=== PATIENT | female | born 1965 | race African-American/Black ===

== ENCOUNTER 2016-12-08 12:17 | Emergency (ER) | payer OTHER ==
[~2016-12-08] VITALS: Ht 170.2 cm; Wt 88.4 kg
[~2016-12-08 12:17] MED LIST: AMLODIPINE BESY10 MG PO; AMLODIPINE BESYL5 MG PO; APIDRA SOL100 UNIT/1 SC; APRESOLINE50 MG PO; ASPIRIN EC325 MG PO; ATORVASTATIN CA40 MG PO; CARBAMAZEPINE200 MG PO; CARVEDILOL25 MG PO; ELAVIL25 MG PO; HYDRALAZINE HC100 MG PO; HYDROCHLOROTHIA25 MG PO; ISOSORBIDE MONO30 MG PO; LANTUS 3 M100 UNITS1 SC; LEVEMIR FL100 UNIT/1 SC; LISINOPRIL40 MG PO; NAPROSYN500 MG PO; NEURONTIN800 MG PO; NORVASC5 MG PO; NOVOLOG PE100 UNITS/ SC; TYLENOL EXTRA500 MG PO; ULTRAM50 MG PO
[2016-12-08 13:26] VITALS: BP 162/82
== END 2016-12-08 13:32 | disposition home or self-care (01) ==
LOC: EME 12:17
DX: S29.012A Strain of muscle and tendon of back wall of thorax, initial encounter (principal); V49.00XA Driver injured in collision with unspecified motor vehicles in nontraffic accident, initial encounter; Y92.488 Other paved roadways as the place of occurrence of the external cause; Z86.73 Personal history of transient ischemic attack (TIA), and cerebral infarction without residual deficits
CPT/HCPCS: 99281; 99284

== ENCOUNTER 2016-12-29 11:24 | Emergency (ER) | payer OTHER ==
[~2016-12-29] VITALS: Ht 170.2 cm; Wt 87.4 kg
[2016-12-29] MEDS ORDERED: LIDODERM 5% P1 PATCH TD (13:17)
[2016-12-29] MEDS ORDERED: FLEXERIL10 MG PO (13:17)
[2016-12-29] MEDS ORDERED: NAPROSYN500 MG PO (13:17)
[2016-12-29 13:32] VITALS: BP 95/59
== END 2016-12-29 13:34 | disposition home or self-care (01) ==
LOC: EME 11:24
DX: S29.012D Strain of muscle and tendon of back wall of thorax, subsequent encounter (principal); V49.60XD Unspecified car occupant injured in collision with unspecified motor vehicles in traffic accident, subsequent encounter; M62.830 Muscle spasm of back; M54.5 Low back pain
CPT/HCPCS: 99281; 99283; J1885

== ENCOUNTER 2017-06-21 12:32 | Inpatient (IN) | payer OTHER ==
[2017-06-21] VITALS (10 sets, daily range): BP systolic 116–147; BP diastolic 59–81
[~2017-06-21] VITALS: Ht 167.6 cm; Wt 80.0 kg
[~2017-06-21 12:32] MED LIST changes: +FLEXERIL10 MG PO; +LIDODERM 5% P1 PATCH TD
[2017-06-21 13:44] LABS: CHLORIDE 104 mEq/L (99-109); POTASSIUM 4.1 mEq/L (3.7-5.4); SODIUM 135 mEq/L (136-147)
[2017-06-21 13:45] LABS: GLUCOSE 249 mg/dL (70-99)
[2017-06-21 13:49] LABS: CREATININE 1.3 mg/dL (0.6-1.3); GFR ESTIMATE (CALCULATED) 56 mL/min/
[2017-06-21 13:50] LABS: UREA NITROGEN (BUN) 19 mg/dL (9-23)
[2017-06-21 13:51] LABS: HEMATOCRIT 25.5 % (36.0-46.0); HEMOGLOBIN 7.8 G/DL (11.9-15.5); MCH 20.8 PG (29.0-34.0); MCHC 30.6 G/DL (30.0-36.0); PLATELET COUNT 367 K/uL (156-360); RBC DIS.WIDTH-CV 17.1 % (11.8-14.6); RBC DIS.WIDTH-SD 41.7 % (39-53); RED BLOOD COUNT 3.75 M/uL (3.80-5.20); WHITE BLOOD COUNT 6.2 K/uL (4.1-10.2)
[2017-06-21 14:06] LABS: TROP-I INTERPRETATION NEGATIVE; TROPONIN-I 0.01 ng/mL (0.0-0.30)
[2017-06-21] MEDS ORDERED: NAPROXEN500 MG PO (15:21)
[2017-06-21] MEDS ORDERED: ZOFRAN4 MG PO (15:22)
[2017-06-21] MEDS ORDERED: CYMBALTA30 MG PO (15:22)
[2017-06-21] MEDS ORDERED: TESSALON PERLE100 MG PO (15:22)
[2017-06-21] MEDS ORDERED: APRESOLINE100 MG PO (15:22)
[2017-06-21] MEDS ORDERED: HYDROCHLOROTHIA25 MG PO (15:23)
[2017-06-21] MEDS ORDERED: COREG25 M1 PO (15:23)
[2017-06-21] MEDS ORDERED: LIPITOR40 MG PO (15:23)
[2017-06-21] MEDS ORDERED: ISOSORBIDE DINIT5 MG PO (15:24)
[2017-06-21] MEDS ORDERED: LEVEMIR100 UNIT/2 SC (15:24)
[2017-06-21] MEDS ORDERED: NOVOLOG PE100 UNITS/ SC (15:25)
[2017-06-21 16:38] LABS: APPEARANCE CLOUDY ((CLEAR)); BILIRUBIN NEGATIVE; BLOOD NEGATIVE; COLOR YELLOW ((YELLOW)); GLUCOSE (STRIP) 50; KETONES NEGATIVE; LEUKOCYTES LARGE; NITRITE NEGATIVE; PROTEIN (STRIP) NEGATIVE; UROBILINOGEN 0.2 MG/DL (0.2-1.0)
[2017-06-21 17:08] LABS: RED BLOOD CELLS NONE SEEN /HPF (0-5)
[2017-06-21 17:09] LABS: BACTERIA 3+ /HPF; EPITHELIAL CELLS 3+ /HPF; MUCUS NONE SEEN /LPF; UCUL ADDED? YES; WHITE BLOOD CELLS 20-30 /HPF (0-5)
[2017-06-22 03:50] VITALS: BP 132/70
[2017-06-22 07:49] LABS: INTER. NORMALIZED RATIO 1.1
[2017-06-22 07:52] LABS: PTT 25.7 SEC (25-37)
[2017-06-22 07:57] LABS: HEMATOCRIT 31.1 % (36.0-46.0); HEMOGLOBIN 9.8 G/DL (11.9-15.5); MCV 71.3 FL (83-99)
[2017-06-22 08:00] VITALS: BP 134/71
[2017-06-22 08:11] LABS: ALBUMIN 3.2 G/DL (3.2-4.8); ALKALINE PHOSPHATASE 159 IU/L (3-129); ALT (GPT) 15 IU/L (3-49); AST (GOT) 13 IU/L (2-34); CHLORIDE 99 MEQ/L (99-109); CREATININE 0.9 MG/DL (0.6-1.3); GFR ESTIMATE (CALCULATED) > 59 mL/min/; GLUCOSE 184 mg/dL (70-99); POTASSIUM 3.9 MEQ/L (3.7-5.4); SODIUM 135 MEQ/L (136-147); TOTAL BILIRUBIN 0.3 MG/DL (0.0-1.0); TOTAL PROTEIN 6.3 G/DL (6.4-8.3); UREA NITROGEN (BUN) 15 mg/dL (9-23)
[2017-06-22 08:39] LABS: IMM.RETIC FRACTION 26.9 % (3-19); RETIC HGB EQUIVALENT 19.4 (28-36); RETICULOCYTE COUNT 1.3 % (0.5-1.8)
[2017-06-22 09:13] LABS: FERRITIN 10 NG/ML (10-291)
[2017-06-22 09:46] LABS: IRON 18 MCG/DL (35-150); TRANSFERRIN (TIBC) 229.5 mg/dL (215-380); TRANSFERRIN SATUR. 8 % (20-55)
[2017-06-22 10:07] LABS: FOLIC ACID (FOLATE) 17.2 NG/ML (5.0-22.0)
[2017-06-22 13:20] VITALS: BP 132/70
[2017-06-22 15:37] VITALS: BP 104/53
[2017-06-22 18:34] LABS: HEMATOCRIT 29.8 % (36.0-46.0); HEMOGLOBIN 9.4 G/DL (11.9-15.5); MCH 22.3 PG (29.0-34.0); MCHC 31.5 G/DL (30.0-36.0); MCV 70.8 FL (83-99); RBC DIS.WIDTH-SD 45.4 % (39-53); RED BLOOD COUNT 4.21 M/uL (3.80-5.20); WHITE BLOOD COUNT 7.5 K/uL (4.1-10.2)
[2017-06-22 18:51] LABS: PLAT.SUFFICIENCY ADEQUATE; PLATELET COUNT 374 K/uL (156-360)
[2017-06-22 20:29] LABS: HEMATOCRIT 30.4 % (36.0-46.0); HEMOGLOBIN 9.5 G/DL (11.9-15.5); MCV 70.9 FL (83-99)
[2017-06-22 20:47] VITALS: BP 139/76
[2017-06-22 23:53] VITALS: BP 147/72
[2017-06-23 03:36] VITALS: BP 136/74
[2017-06-23 07:12] LABS: BASOPHIL (%) 0.3 % (0-1); EOSINOPHIL (%) 3.5 % (0-5); EOSINOPHIL COUNT 0.2 K/uL (0-0.3); HEMATOCRIT 31.7 % (36.0-46.0); HEMOGLOBIN 9.8 G/DL (11.9-15.5); IMMATURE GRANULOCYTE (%) 0.2 % (0.0-0.7); LYMPHOCYTE (%) 37.5 % (15-42); LYMPHOCYTE COUNT 2.3 K/uL (1.0-2.8); MCHC 30.9 G/DL (30.0-36.0); MCV 71.1 FL (83-99); MONOCYTE (%) 9.8 % (3-12); MONOCYTE COUNT 0.6 K/uL (0-0.8); NEUTROPHIL (%) 48.7 % (45-76); PLATELET COUNT 390 K/uL (156-360); RBC DIS.WIDTH-CV 18.5 % (11.8-14.6); RBC DIS.WIDTH-SD 47.2 % (39-53); RED BLOOD COUNT 4.46 M/uL (3.80-5.20); WHITE BLOOD COUNT 6.2 K/uL (4.1-10.2)
[2017-06-23 07:25] LABS: ALBUMIN 3.2 G/DL (3.2-4.8); CHLORIDE 101 MEQ/L (99-109); CREATININE 0.9 MG/DL (0.6-1.3); GFR ESTIMATE (CALCULATED) > 59 mL/min/; GLUCOSE 160 mg/dL (70-99); PHOSPHORUS 3.8 mg/dL (2.5-4.9); SODIUM 137 MEQ/L (136-147); UREA NITROGEN (BUN) 13 mg/dL (9-23)
[2017-06-23 08:30] VITALS: BP 128/92
[2017-06-23 15:48] VITALS: BP 147/75
[2017-06-23 23:15] VITALS: BP 160/74
[2017-06-24 07:05] VITALS: BP 180/96
[2017-06-24 08:49] LABS: ALBUMIN 3.2 G/DL (3.2-4.8); ALKALINE PHOSPHATASE 144 IU/L (3-129); ALT (GPT) 11 IU/L (3-49); AST (GOT) 8 IU/L (2-34); CHLORIDE 102 MEQ/L (99-109); CREATININE 0.8 MG/DL (0.6-1.3); GFR ESTIMATE (CALCULATED) > 59 mL/min/; POTASSIUM 3.9 MEQ/L (3.7-5.4); SODIUM 140 MEQ/L (136-147); TOTAL BILIRUBIN 0.3 MG/DL (0.0-1.0); TOTAL PROTEIN 6.3 G/DL (6.4-8.3); UREA NITROGEN (BUN) 11 mg/dL (9-23)
[2017-06-24 09:11] LABS: GLUCOSE 107 mg/dL (70-99)
[2017-06-24 09:19] LABS: CARCINOEMBR.ANTIGEN 0.6 NG/ML
[2017-06-24 09:40] LABS: BASOPHIL (%) 0.7 % (0-1); EOSINOPHIL (%) 3.5 % (0-5); EOSINOPHIL COUNT 0.2 K/uL (0-0.3); HEMATOCRIT 33.5 % (36.0-46.0); HEMOGLOBIN 10.3 G/DL (11.9-15.5); IMMATURE GRANULOCYTE (%) 0.5 % (0.0-0.7); LYMPHOCYTE (%) 38.4 % (15-42); LYMPHOCYTE COUNT 2.3 K/uL (1.0-2.8); MCH 22.2 PG (29.0-34.0); MCHC 30.7 G/DL (30.0-36.0); MONOCYTE (%) 8.2 % (3-12); MONOCYTE COUNT 0.5 K/uL (0-0.8); NEUTROPHIL (%) 48.7 % (45-76); NEUTROPHIL COUNT 2.9 K/uL (1.8-6.4); PLATELET COUNT 419 K/uL (156-360); RBC DIS.WIDTH-CV 19.1 % (11.8-14.6); RED BLOOD COUNT 4.65 M/uL (3.80-5.20)
[2017-06-24 23:22] VITALS: BP 140/70
[2017-06-25 07:16] VITALS: BP 193/91
[2017-06-25 08:23] LABS: BASOPHIL (%) 0.5 % (0-1); EOSINOPHIL (%) 2.2 % (0-5); EOSINOPHIL COUNT 0.1 K/uL (0-0.3); HEMOGLOBIN 10.1 G/DL (11.9-15.5); IMMATURE GRANULOCYTE (%) 0.4 % (0.0-0.7); LYMPHOCYTE (%) 39.7 % (15-42); LYMPHOCYTE COUNT 2.2 K/uL (1.0-2.8); MCH 22.2 PG (29.0-34.0); MCHC 30.6 G/DL (30.0-36.0); MCV 72.7 FL (83-99); MONOCYTE (%) 7.1 % (3-12); MONOCYTE COUNT 0.4 K/uL (0-0.8); NEUTROPHIL (%) 50.1 % (45-76); NEUTROPHIL COUNT 2.8 K/uL (1.8-6.4); PLATELET COUNT 413 K/uL (156-360); RBC DIS.WIDTH-CV 18.8 % (11.8-14.6); RBC DIS.WIDTH-SD 48.8 % (39-53); RED BLOOD COUNT 4.54 M/uL (3.80-5.20); WHITE BLOOD COUNT 5.5 K/uL (4.1-10.2)
[2017-06-25 08:41] LABS: CHLORIDE 101 MEQ/L (99-109); CREATININE 0.8 MG/DL (0.6-1.3); GFR ESTIMATE (CALCULATED) > 59 mL/min/; GLUCOSE 91 mg/dL (70-99); SODIUM 139 MEQ/L (136-147); UREA NITROGEN (BUN) 9 mg/dL (9-23)
[2017-06-25 15:24] VITALS: BP 191/90
[2017-06-25 18:21] VITALS: BP 140/70
[2017-06-26] VITALS (7 sets, daily range): BP systolic 127–180; BP diastolic 70–86
[2017-06-26 06:33] LABS: HEMATOCRIT 31.4 % (36.0-46.0); HEMOGLOBIN 9.7 G/DL (11.9-15.5); MCH 22.2 PG (29.0-34.0); MCHC 30.9 G/DL (30.0-36.0); PLATELET COUNT 400 K/uL (156-360); RBC DIS.WIDTH-CV 18.7 % (11.8-14.6); RED BLOOD COUNT 4.36 M/uL (3.80-5.20); WHITE BLOOD COUNT 5.4 K/uL (4.1-10.2)
[2017-06-26 06:50] LABS: CHLORIDE 102 MEQ/L (99-109); CREATININE 0.8 MG/DL (0.6-1.3); GFR ESTIMATE (CALCULATED) > 59 mL/min/; GLUCOSE 98 mg/dL (70-99); POTASSIUM 3.4 MEQ/L (3.7-5.4); SODIUM 139 MEQ/L (136-147); UREA NITROGEN (BUN) 7 mg/dL (9-23)
[2017-06-27] VITALS (13 sets, daily range): BP systolic 129–190; BP diastolic 59–88
[2017-06-27 06:26] LABS: CHLORIDE 105 MEQ/L (99-109); GLUCOSE 113 mg/dL (70-99); SODIUM 140 MEQ/L (136-147); UREA NITROGEN (BUN) 15 mg/dL (9-23)
[2017-06-27 06:31] LABS: CREATININE 1.4 MG/DL (0.6-1.3); GFR ESTIMATE (CALCULATED) 51 mL/min/; POTASSIUM 4.3 MEQ/L (3.7-5.4)
[2017-06-27 07:23] LABS: HEMATOCRIT 21.9 % (36.0-46.0); HEMOGLOBIN 6.6 G/DL (11.9-15.5); MCH 22.1 PG (29.0-34.0); MCHC 30.1 G/DL (30.0-36.0); MCV 73.2 FL (83-99); PLATELET COUNT 332 K/uL (156-360); RBC DIS.WIDTH-CV 18.3 % (11.8-14.6); RBC DIS.WIDTH-SD 48.9 % (39-53); RED BLOOD COUNT 2.99 M/uL (3.80-5.20); WHITE BLOOD COUNT 7.8 K/uL (4.1-10.2)
[2017-06-27 16:22] LABS: BACTERIA NONE SEEN /HPF; EPITHELIAL CELLS RARE /HPF; HYALINE CASTS 30-40 /LPF; MUCUS 2+ /LPF; RED BLOOD CELLS 0-5 /HPF (0-5); WHITE BLOOD CELLS 0-5 /HPF (0-5)
[2017-06-27 17:29] LABS: CHLORIDE 101 MEQ/L (99-109); GFR ESTIMATE (CALCULATED) > 59 mL/min/; POTASSIUM 4.1 MEQ/L (3.7-5.4); SODIUM 135 MEQ/L (136-147); UREA NITROGEN (BUN) 16 mg/dL (9-23)
[2017-06-27 17:31] LABS: GLUCOSE 334 mg/dL (70-99)
[2017-06-27 17:40] LABS: HEMATOCRIT 26.8 % (36.0-46.0); HEMOGLOBIN 8.4 G/DL (11.9-15.5); MCH 24.2 PG (29.0-34.0); MCHC 31.3 G/DL (30.0-36.0); PLATELET COUNT 261 K/uL (156-360); RBC DIS.WIDTH-CV 18.9 % (11.8-14.6); RBC DIS.WIDTH-SD 52.8 % (39-53); RED BLOOD COUNT 3.47 M/uL (3.80-5.20); WHITE BLOOD COUNT 6.9 K/uL (4.1-10.2)
[2017-06-27 17:46] LABS: MCV 77.2 FL (83-99)
[2017-06-27 18:44] LABS: EOSINOPHILS,URINE NONE SEEN
[2017-06-28] VITALS (8 sets, daily range): BP systolic 120–200; BP diastolic 73–98
[2017-06-28 07:10] LABS: BASOPHIL (%) 0.3 % (0-1); EOSINOPHIL (%) 1.8 % (0-5); EOSINOPHIL COUNT 0.1 K/uL (0-0.3); HEMATOCRIT 29.3 % (36.0-46.0); HEMOGLOBIN 9.3 G/DL (11.9-15.5); IMMATURE GRANULOCYTE (%) 1.4 % (0.0-0.7); LYMPHOCYTE (%) 28.6 % (15-42); LYMPHOCYTE COUNT 1.9 K/uL (1.0-2.8); MCH 23.9 PG (29.0-34.0); MCHC 31.7 G/DL (30.0-36.0); MCV 75.3 FL (83-99); MONOCYTE (%) 7.7 % (3-12); MONOCYTE COUNT 0.5 K/uL (0-0.8); NEUTROPHIL (%) 60.2 % (45-76); PLATELET COUNT 286 K/uL (156-360); RBC DIS.WIDTH-CV 18.7 % (11.8-14.6); RBC DIS.WIDTH-SD 51.4 % (39-53); RED BLOOD COUNT 3.89 M/uL (3.80-5.20); WHITE BLOOD COUNT 6.7 K/uL (4.1-10.2)
[2017-06-28 08:02] LABS: CHLORIDE 99 MEQ/L (99-109); CREATININE 0.8 MG/DL (0.6-1.3); FERRITIN 23 NG/ML (10-291); GFR ESTIMATE (CALCULATED) > 59 mL/min/; GLUCOSE 169 mg/dL (70-99); IRON 73 MCG/DL (35-150); POTASSIUM 4.2 MEQ/L (3.7-5.4); SODIUM 136 MEQ/L (136-147); TRANSFERRIN (TIBC) 204.2 mg/dL (215-380); TRANSFERRIN SATUR. 36 % (20-55); UREA NITROGEN (BUN) 10 mg/dL (9-23)
[2017-06-28 10:14] LABS: HEMOGLOBIN A1c (GLYCOHEMOGLOB) 8.1 % (Below 5.7)
[2017-06-29 00:10] VITALS: BP 196/88
[2017-06-29 03:15] VITALS: BP 190/80
[2017-06-29 06:50] VITALS: BP 196/86
[2017-06-29 07:44] LABS: BASOPHIL (%) 0.1 % (0-1); EOSINOPHIL (%) 2.4 % (0-5); EOSINOPHIL COUNT 0.2 K/uL (0-0.3); HEMOGLOBIN 8.6 G/DL (11.9-15.5); IMMATURE GRANULOCYTE (%) 0.6 % (0.0-0.7); LYMPHOCYTE (%) 28.7 % (15-42); LYMPHOCYTE COUNT 1.9 K/uL (1.0-2.8); MCHC 31.9 G/DL (30.0-36.0); MCV 75.4 FL (83-99); MONOCYTE (%) 8.4 % (3-12); MONOCYTE COUNT 0.6 K/uL (0-0.8); NEUTROPHIL (%) 59.8 % (45-76); PLATELET COUNT 279 K/uL (156-360); RBC DIS.WIDTH-CV 18.8 % (11.8-14.6); RBC DIS.WIDTH-SD 52.3 % (39-53); RED BLOOD COUNT 3.58 M/uL (3.80-5.20); WHITE BLOOD COUNT 6.7 K/uL (4.1-10.2)
[2017-06-29 08:11] LABS: CHLORIDE 100 MEQ/L (99-109); CREATININE 0.7 MG/DL (0.6-1.3); GFR ESTIMATE (CALCULATED) > 59 mL/min/; GLUCOSE 198 mg/dL (70-99); SODIUM 138 MEQ/L (136-147); UREA NITROGEN (BUN) 7 mg/dL (9-23)
[2017-06-29 11:42] VITALS: BP 139/69
[2017-06-29 17:38] VITALS: BP 189/88
[2017-06-29 22:26] VITALS: BP 183/85
[2017-06-30] VITALS (8 sets, daily range): BP systolic 100–187; BP diastolic 57–88
[2017-06-30 06:01] LABS: BASOPHIL (%) 0.5 % (0-1); EOSINOPHIL (%) 3.5 % (0-5); EOSINOPHIL COUNT 0.2 K/uL (0-0.3); HEMATOCRIT 26.9 % (36.0-46.0); HEMOGLOBIN 8.6 G/DL (11.9-15.5); IMMATURE GRANULOCYTE (%) 0.3 % (0.0-0.7); LYMPHOCYTE (%) 30.8 % (15-42); LYMPHOCYTE COUNT 1.9 K/uL (1.0-2.8); MCH 24.1 PG (29.0-34.0); MCV 75.4 FL (83-99); MONOCYTE (%) 9.7 % (3-12); MONOCYTE COUNT 0.6 K/uL (0-0.8); NEUTROPHIL (%) 55.2 % (45-76); NEUTROPHIL COUNT 3.3 K/uL (1.8-6.4); PLATELET COUNT 282 K/uL (156-360); RBC DIS.WIDTH-CV 19.9 % (11.8-14.6); RBC DIS.WIDTH-SD 54.1 % (39-53); RED BLOOD COUNT 3.57 M/uL (3.80-5.20)
[2017-06-30 06:33] LABS: CHLORIDE 102 MEQ/L (99-109); CREATININE 0.8 MG/DL (0.6-1.3); GFR ESTIMATE (CALCULATED) > 59 mL/min/; GLUCOSE 166 mg/dL (70-99); MAGNESIUM 1.7 mg/dl (1.3-2.7); POTASSIUM 4.1 MEQ/L (3.7-5.4); SODIUM 139 MEQ/L (136-147); UREA NITROGEN (BUN) 9 mg/dL (9-23)
[2017-06-30 11:03] LABS: HEMATOCRIT 26.8 % (36.0-46.0); HEMOGLOBIN 8.8 G/DL (11.9-15.5); MCV 75.3 FL (83-99)
[2017-06-30 11:51] LABS: STOOL OCCULT BLD 1ST SPECIMEN POSITIVE
[2017-07-01 03:15] VITALS: BP 176/84
[2017-07-01 03:27] VITALS: BP 184/78
[2017-07-01 04:45] VITALS: BP 138/78
[2017-07-01 06:17] LABS: HEMATOCRIT 26.1 % (36.0-46.0); HEMOGLOBIN 8.3 G/DL (11.9-15.5); MCH 23.9 PG (29.0-34.0); MCHC 31.8 G/DL (30.0-36.0); MCV 75.2 FL (83-99); PLATELET COUNT 271 K/uL (156-360); RBC DIS.WIDTH-CV 20.5 % (11.8-14.6); RBC DIS.WIDTH-SD 55.1 % (39-53); RED BLOOD COUNT 3.47 M/uL (3.80-5.20); WHITE BLOOD COUNT 6.9 K/uL (4.1-10.2)
[2017-07-01 06:26] LABS: BASOPHIL (%) 0.3 % (0-1); EOSINOPHIL (%) 4.2 % (0-5); EOSINOPHIL COUNT 0.3 K/uL (0-0.3); IMMATURE GRANULOCYTE (%) 0.4 % (0.0-0.7); LYMPHOCYTE (%) 30.1 % (15-42); LYMPHOCYTE COUNT 2.1 K/uL (1.0-2.8); MONOCYTE (%) 8.3 % (3-12); MONOCYTE COUNT 0.6 K/uL (0-0.8); NEUTROPHIL (%) 56.7 % (45-76); NEUTROPHIL COUNT 3.9 K/uL (1.8-6.4)
[2017-07-01 06:41] LABS: CHLORIDE 101 MEQ/L (99-109); CREATININE 0.9 MG/DL (0.6-1.3); GFR ESTIMATE (CALCULATED) > 59 mL/min/; GLUCOSE 165 mg/dL (70-99); SODIUM 138 MEQ/L (136-147); UREA NITROGEN (BUN) 13 mg/dL (9-23)
[2017-07-01] MEDS ORDERED: NORCO 5/3251 TABLET PO (08:32)
[2017-07-01] MEDS ORDERED: COLACE100 MG PO (08:32)
[2017-07-01 09:20] VITALS: BP 142/84
[2017-07-01 10:04] VITALS: BP 180/100
== END 2017-07-01 13:17 | disposition home or self-care (01) | DRG 329 ==
LOC: EME 12:32 → ENRESERV 15:18 → 2EAST 15:43 → EDOF 15:43 → ENRESERV 15:48 → 2EAST 18:18 → ENPENDDIS 07-01 → 2EAST 07-01 13:17
PROVIDERS: Emergency Medicine; Family Medicine; Internal Medicine; Internal Medicine Gastroenterology; Physician Assistant; Surgery
DX: C18.0 Malignant neoplasm of cecum (principal); N17.0 Acute kidney failure with tubular necrosis; E86.0 Dehydration; I95.9 Hypotension, unspecified; I11.0 Hypertensive heart disease with heart failure; I50.32 Chronic diastolic (congestive) heart failure; D50.0 Iron deficiency anemia secondary to blood loss (chronic); D12.3 Benign neoplasm of transverse colon; N39.0 Urinary tract infection, site not specified; B96.20 Unspecified Escherichia coli [E. coli] as the cause of diseases classified elsewhere; K25.9 Gastric ulcer, unspecified as acute or chronic, without hemorrhage or perforation; K29.60 Other gastritis without bleeding; K64.8 Other hemorrhoids; E78.5 Hyperlipidemia, unspecified; E11.9 Type 2 diabetes mellitus without complications; E66.9 Obesity, unspecified; Z68.28 Body mass index [BMI] 28.0-28.9, adult; Z79.4 Long term (current) use of insulin; Z86.73 Personal history of transient ischemic attack (TIA), and cerebral infarction without residual deficits
CPT/HCPCS: 71260; 74177; 80048; 80048 91; 80053; 80069; 81003; 81015; 82272; 82378; 82607; 82728; 82746; 82948; 83036; 83540; 83735; 83930; 83935; 84300; 84466; 84484; 85014; 85018; 85025; 85025 91; 85027; 85046; 85610; 85730; 86850; 86900; 86901; 86920; 87077; 87086; 87186; 87493; 88305; 88309; 88342 TC; 89190; 93005; 93306; 99281; 99285; C9113; J0131; J0330; J0360; J0696; J1100; J1170; J1815; J1885; J1940; J2250; J2405; J2550; J2710; J7030; J7120; P9016